=== PATIENT | female | born 1980 | race Caucasian/White ===

== ENCOUNTER 2020-04-11 14:05 | Emergency (ER) | payer BC, SELFPAY ==
--- NOTE | ~2020-04-11 | CT_ITS ---
EXAMINATION: CT brain wo con DATE: 04/11/2020 16:01 INDICATION: Headache. TECHNIQUE: Computed tomography (CT) of the head was performed without intravenous contrast. The mA wa s adjusted according to patient size. Iterative reconstruction technique was employed. The dose-lengt h product was 605.33 mGy-cm. COMPARISON: None FINDINGS: There is no intracranial hemorrhage, acute infarction, or abnormal intracranial mass lesion . The ventricles are normal in size. There is mild mucosal thickening in the paranasal sinuses. The m astoid air cells are normal. The orbits are normal. IMPRESSION: 1. Normal brain. Reviewed, dictated and finalized at location B. KING MACHINE OPERATOR IMPRESSION: 1. Normal brain.
[2020-04-11 14:19] VITALS: BP 124/80; PULSE 88; RESP 17; TEMP 36.7; O2SAT 100
[2020-04-11] MEDS: diphenhydrAMINE HCl INJ 50 MG/ML VIAL 25 MG IV PUSH (16:10)
[2020-04-11] MEDS: KETOROLAC 30 MG/ML VIAL (*BKC) IV PUSH (16:11)
[2020-04-11] MEDS: METOCLOPRAMIDE HCL INJ 10 MG/2 ML VIAL IV PUSH (16:12)
[2020-04-11] MEDS: SODIUM CHLORIDE 0.9% IV 1,000 ML 999 ML IV CONT (16:16)
--- NOTE | 2020-04-11 17:03 | ED.HA ---
HPI - Headache General Chief Complaint: Headache Stated Complaint: stabbing headaches, covid + on 04/02/20 Time Seen by Provider: 04/11/20 15:13 Source: patient Mode of arrival: ambulatory Limitations: no limitations History of Present Illness HPI Narrative: This is a 39 year old female that presents to the ER for headaches x 1 week. Reports she was recently diagnosed with coronavirus. Reports most of her symptoms have resolved, but she is still having headaches. Reports stabbing pain on the right side of her head. She has been taking Tylenol at home with some relief. She does report history of migraines. Denies fever, vision changes, vomiting, numbness, or weakness. Related Data Home Medications Medication Instructions Recorded Confirmed No Home Medications 04/11/20 04/11/20 Allergies Allergy/AdvReac Type Severity Reaction Status Date / Time No Known Allergies Allergy Mild Verified 04/11/20 14:07 Review of Systems Review of Systems: Narrative: CONSTITUTIONAL: Denies fever EYES: Denies visual changes GASTROINTESTINAL: Denies vomiting SKIN: Denies rash NEUROLOGIC: Reports headache. Denies numbness, or weakness. All systems reviewed & are unremarkable except as noted in HPI and below PMFSH Surgical History Surgical History (Updated 04/11/20 @ 17:07 by Gail Lima PA-C) History of hysterectomy Family History Family History (Updated 12/27/13 @ 07:13 by DOCTOR UNKNOWN) Mother Hypertension Carcinoma of colon Family history of coronary artery disease Social History Social History Smoking status: Former smoker Smoking end date: 05/02/02 Alcohol intake: current Gender identity (if verbalized by the patient): Female Exam Narrative: Exam Narrative: GENERAL: Well-appearing, well-nourished, and in no acute distress. HEAD: Normocephalic, atraumatic. EYES: PERRLA and EOMI. ENT: Nares clear, no rhinorrhea or epistaxis. Mucous membranes moist. Oropharynx without tonsillar hypertrophy exudate or other lesions. Bilateral TMs pearly callahan non-bulging NECK: Supple. No adenopathy or masses. CHEST: Clear to auscultation. No respiratory distress. No wheezes rales or rhonchi HEART: Regular rate and rhythm. No murmur heard. Normal peripheral pulses. EXTREMITIES: Normal range of motion. No edema. Strength equal in bilateral upper and lower extremities (5/5) SKIN: Warm, dry, no rash. NEURO: No focal deficits. Alert and oriented x3. Cranial nerves II through XII grossly intact. Normal [id number] PSYCH: Normal mood and affect Course Vital Signs Vital signs: Vital Signs Temperature 98.0 F 04/11/20 14:19 Pulse Rate 88 04/11/20 14:19 Respiratory Rate 17 04/11/20 14:19 Blood Pressure 124/80 04/11/20 14:19 Pulse Oximetry 100 04/11/20 14:19 Temperature 98.0 F 04/11/20 14:19 Pulse Rate 88 04/11/20 14:19 Respiratory Rate 17 04/11/20 14:19 Blood Pressure 124/80 04/11/20 14:19 Pulse Oximetry 100 04/11/20 14:19 MDM - Headache MDM Narrative Medical decision making narrative: Patient presents emergency department for headaches over the last week. She is neurologically intact. She is afebrile and nontoxic-appearing. Vitals are normal. CT scan of the brain is without acute findings. Patient was updated on case findings. Reports improvement with migraine cocktail. She is stable and felt appropriate for further outpatient evaluation. Given neurology for follow-up for headaches. She was given warnings to return to the ER Imaging Data Radiologist's impression: ITS Impressions Head CT 04/11/20 16:03 IMPRESSION: 1. Normal brain. Critical Care Time Critical Care Time Critical Care Time: No Discharge Plan Discharge Clinical Impression: Headache Qualifiers: Headache type: unspecified Headache chronicity pattern: episodic headache Intractability: not intractable Qualified Code(s): R51.9 - Headache, unspecified Patient Disposition: Home, Self
== END 2020-04-11 17:47 | disposition home or self-care (01) ==
PROVIDERS: Emergency Provider Emergency Medicine; PCP Family Medicine
DX: R51.9 Headache, unspecified (principal); Z87.891 Personal history of nicotine dependence
CPT/HCPCS: 70450; 96361; 96365; 96375; 99284; J0131; J1100; J1200; J1885; J2765; J7030

== ENCOUNTER 2024-02-26 14:16 | Emergency (ER) | payer BC, SELFPAY ==
[2024-02-26 14:25] VITALS: BP 124/88; PULSE 77; RESP 18; TEMP 36.6; O2SAT 99
--- NOTE | 2024-02-26 14:26 | ED_ITS ---
HPI - Skin/Abscess/Foreign Bdy General Chief complaint: Skin/Abscess/Foreign Body Stated complaint: rash Time Seen by Provider: 02/26/24 14:27 Source: patient Mode of arrival: ambulatory Limitations: no limitations History of Present Illness HPI narrative: 43 yo F presents with c/o itchy rash to backs of thighs, hands, neck and chest for the past 2 days. States that rash comes and goes. Describes rash at red bump s to thighs and neck. Palms of hands are red. Denies use of any new products. States that only thing that she has done different recently was hold wet towels and swimsuits at an indoor pool. Has taken benadryl. All systems reviewed and negative except as noted above. Related Data Allergies Allergy/AdvReac Type Severity Reaction Status Date / Time No Known Allergies Allergy Mild Verified 02/26/24 14:37 Review of Systems Review of Systems: CONSTITUTIONAL: Denies fever, chills, or sweats. EYES: Denies visual changes, redness, or discharge. ENT: Denies rhinorrhea, congestion, sore throat, or otalgia. CARDIOVASCULAR: Denies chest pain, palpitations, or edema. RESPIRATORY: Denies cough or dyspnea. GASTROINTESTINAL: Denies abdominal pain, nausea, vomiting, or diarrhea. GENITOURINARY: Denies dysuria or hematuria. SKIN: Reports rash and itching. MUSCULOSKELETAL: Denies back pain, joint pain, or myalgia. NEUROLOGIC: Denies headache, numbness, or weakness. PSYCHIATRIC: Denies anxiety or depression. All other systems reviewed are negative, except as documented in HPI. [facility] Past Medical History Medical History Family history of colon cancer LUPE (generalized anxiety disorder) Surgical History Surgical History History of hysterectomy Family History Family History Mother Hypertension Carcinoma of colon Family history of coronary artery disease Social History Social History Smoking packs per day: 0.5 Smoking cigarettes per day: 10.0 Years smoked: 10 Smoking pack-years: 5.00 Smoking status: Former smoker Tobacco type: cigarettes Second hand tobacco smoke exposure: No Smoking end date: 05/02/02 Alcohol intake: current Substance use: never Substance use type: does not use Living arrangements: with family Occupation/Education: other Additional occupation/education comments: Stay at home mom Gender identity (if verbalized by the patient): Female Comments At time of signature, agree with nursing past medical, surgical, social and family history. There is no relevant family history pertinent to the presenting complaint. Exam Narrative: GENERAL: This is a well-nourished, well-developed patient, in no apparent distress. HEAD: normocephalic, atraumatic. EYES: PERRL. Sclera clear/white. Vision is grossly intact. EARS: External ears normal NOSE: External nose normal NECK: Neck supple, non-tender without lymphadenopathy, masses or thyromegaly. CARDIOVASCULAR: Regular rate and rhythm without murmurs, gallops, or rubs. RESPIRATORY: Clear to auscultation. Breath sounds equal bilaterally. No wheezes, rales, or rhonchi. SKIN: warm, Dry, intact, good texture and turgor. mild erythematous papules to L anterior neck, some erythema to palms of hands. no other rash noted at this time. NEURO: awake, alert, and oriented to person, place and time. There were no obvious focal neurologic abnormalities. EXTREMITIES: No joint tenderness, effusion, or edema noted. Course Course Level of Care: Express Care Visit Vital Signs Vital signs: Vital Signs Temperature 36.6 C 02/26/24 14:25 Pulse Rate 77 02/26/24 14:25 Respiratory Rate 18 02/26/24 14:25 Blood Pressure 124/88 02/26/24 14:25 Pulse Oximetry 99 02/26/24 14:25 Oxygen Delivery Room Air 02/26/24 14:25 Temperature 36.6 C 02/26/24 14:25 Pulse Rate 77 02/26/24 14:25 Respiratory Rate 18 02/26/24 14:25 Blood Pressure 124/88 02/26/24 14:25 Pulse Oximetry 99 02/26/24 14:25 Oxygen Delivery Room Air 02/26/24 14:25 reviewed MDM - Skin/Abscess/Foreign Bdy MDM Narrative Medical decision making narrative: will treat with steroids, pepcid, antihistamine for possible allergic reaction or contact dermatitis Patient is aware of diagnosis, understands and agrees to treatment plan. A nticipatory guidance given. Patient agrees to follow-up as directed and is aware of reasons to seek care at the emergency department. Portions of this record may have been created with voice recognition software Differential Diagnosis Differential diagnosis: Likely urticaria, allergic reaction to drug, eczema and contact dermatitis Discharge Plan Discharge Clinical Impression: Rash and nonspecific skin eruption Patient Disposition: Home, Self-Care Condition: Stable Instructions: Acute Rash (ED), Dermatitis (ED) Additional Instructions: Take prednisone as prescribed. Take an qybr-iyq-dtadgmt antihistamine such as Claritin or Zyrtec. Take Ivei-ddz-lbqdjam Pepcid twice a day for the next 5-7 days. follow-up with your doctor if rash is not improving. Prescriptions: New prednisone 20 mg tablet See Rx Instructions .ROUTE .COMPLEX Qty: 12 0RF Rx Instructions: Take 3 tablets today, then 2 tablets daily for 3 days then 1 tablet daily for 3 days. Follow-up/Referrals: Apolinar Holt MD [Primary Care Provider] - Time of Disposition: 14:50
== END 2024-02-26 14:54 | disposition home or self-care (01) ==
PROVIDERS: Emergency Provider Nurse Practitioner Family; PCP Family Medicine
DX: R21 Rash and other nonspecific skin eruption (principal); Z87.891 Personal history of nicotine dependence
CPT/HCPCS: 99213; G0463

== ENCOUNTER 2024-03-03 17:15 | Emergency (ER) | payer BC, SELFPAY ==
[2024-03-03 17:23] VITALS: BP 106/62; PULSE 76; RESP 16; TEMP 36.2; O2SAT 98
--- NOTE | 2024-03-03 17:51 | ED_ITS ---
HPI - Ear Problem General Chief complaint: Ear Stated complaint: ear clogged up Time Seen by Provider: 03/03/24 17:26 Source: patient and RN notes reviewed Mode of arrival: ambulatory Limitations: no limitations History of Present Illness HPI Narrative: Patient presents today complaining of left ear clogging x9 days. Denies pain or drainage. She has been taking Zyrtec without relief. Last week she was on some prednisone to help with a rash. Related Data Home Medications Medication Instructions Recorded Confirmed No Home Medications 03/03/24 03/03/24 Allergies Allergy/AdvReac Type Severity Reaction Status Date / Time No Known Allergies Allergy Mild Verified 03/03/24 17:18 Review of Systems Review of Systems: CONSTITUTIONAL: Denies body aches, fever, chills, or sweats. EYES: Denies visual changes, redness, or discharge. ENT: Denies rhinorrhea, congestion, sore throat, or otalgia.+ left ear clogging CARDIOVASCULAR: Denies chest pain, palpitations, or edema. RESPIRATORY: Denies cough or dyspnea. GASTROINTESTINAL: Denies abdominal pain, nausea, vomiting, or diarrhea. GENITOURINARY: Denies dysuria or hematuria. SKIN: Denies rash, itching, or wounds. MUSCULOSKELETAL: Denies back pain, joint pain, or myalgia. NEUROLOGIC: Denies headache, numbness, tingling, or weakness. PSYCH: Denies depression or anxiety. [facility] Past Medical History Medical History Family history of colon cancer LUPE (generalized anxiety disorder) Surgical History Surgical History History of hysterectomy Family History Family History Mother Hypertension Carcinoma of colon Family history of coronary artery disease Social History Social History Smoking packs per day: 0.5 Smoking cigarettes per day: 10.0 Years smoked: 10 Smoking pack-years: 5.00 Smoking status: Former smoker Tobacco type: cigarettes Second hand tobacco smoke exposure: No Smoking end date: 05/02/02 Alcohol intake: current Substance use: never Substance use type: does not use Living arrangements: with family Occupation/Education: other Additional occupation/education comments: Stay at home mom Gender identity (if verbalized by the patient): Female Comments At time of signature, I have reviewed and agree with nursing past medical, surgical, social and family history unless otherwise noted. Please see nursing chart for further information. There is no relevant family history pertinent to the presenting complaint Exam Narrative: GENERAL: Well-appearing, well-nourished, and in no acute distress. HEAD: Normocephalic, atraumatic. EYES: EOMI. No redness or drainage. Conjunctivae normal. ENT: Mucous membranes pink and moist. Nares clear. No rhinorrhea. Right TM normal. Left TM pearly callahan with moderate middle ear effusion without evidence of bacterial infection. NECK: Normal AROM. CHEST: No respiratory distress. EXTREMITIES: Normal range of motion. No edema. SKIN: Warm, dry, no rash. Capillary refill normal. Normal skin turgor. NEURO: No focal deficits. Alert and oriented x3. Gait steady. PSYCH: Normal affect. No signs of depression or anxiety. Course Course Level of Care: Express Care Visit Vital Signs Vital signs: Vital Signs Temperature 97.2 F L 03/03/24 17:23 Pulse Rate 76 03/03/24 17:23 Respiratory Rate 16 03/03/24 17:23 Blood Pressure 106/62 03/03/24 17:23 Pulse Oximetry 98 03/03/24 17:23 Oxygen Delivery Room Air 03/03/24 17:23 Temperature 97.2 F L 03/03/24 17:23 Pulse Rate 76 03/03/24 17:23 Respiratory Rate 16 03/03/24 17:23 Blood Pressure 106/62 03/03/24 17:23 Pulse Oximetry 98 03/03/24 17:23 Oxygen Delivery Room Air 03/03/24 17:23 Reviewed Medical Decision Making MDM Narrative Medical decision making narrative: Instructed patient to start pseudoephedrine and Afrin or Flonase to help with symptoms. Discussed dosing limitations of Afrin to prevent rhinitis medicamentosa. Anticipatory guidance given. Differential Diagnosis Differential Diagnosis: Otitis media, otitis externa, ruptured TM, serous otitis, cerumen impaction Vital Signs Vital Signs: Vital Signs Temperature 97.2 F L 03/03/24 17:23 Pulse Rate 76 03/03/24 17:23 Respiratory Rate 16 03/03/24 17:23 Blood Pressure 106/62 03/03/24 17:23 Pulse Oximetry 98 03/03/24 17:23 Oxygen Delivery Room Air 03/03/24 17:23 Temperature 97.2 F L 03/03/24 17:23 Pulse Rate 76 03/03/24 17:23 Respiratory Rate 16 03/03/24 17:23 Blood Pressure 106/62 03/03/24 17:23 Pulse Oximetry 98 03/03/24 17:23 Oxygen Delivery Room Air 03/03/24 17:23 Critical Care Time Critical Care Time Critical Care Time: No Discharge Plan Discharge Clinical Impression: Acute serous otitis media of left ear Patient Disposition: Home, Self-Care Condition: Stable Instructions: Fluid In The Ear (Serous Otitis Media) (ED) Additional Instructions: You have a collection of fluid behind your eardrum, but there is not an indication of infection. Start Sudafed and Afrin or Flonase. Attempt to equalize your ear gently. Follow up with your PCP in 1 week if symptoms are not improving. Prescriptions: No Action No Home Medications Follow-up/Referrals: Apolinar Holt MD [Primary Care Provider] - Time of Disposition: 17:39
== END 2024-03-03 17:40 | disposition home or self-care (01) ==
PROVIDERS: Emergency Provider Nurse Practitioner; PCP Family Medicine
DX: H65.02 Acute serous otitis media, left ear (principal); Z87.891 Personal history of nicotine dependence
CPT/HCPCS: 99211; G0463

== ENCOUNTER 2024-11-23 14:43 | Outpatient (CLI) | payer BC, SELFPAY ==
--- NOTE | ~2024-11-23 | XR_ITS ---
EXAM/ PROCEDURE: XR foot RT min 3V - 11/23/2024 14:55 CDT HISTORY: 44 years old Female with M79.671 - Pain in right foot COMPARISON: None available TECHNIQUE: Three view(s) FINDINGS/ IMPRESSION: There are no fractures or dislocations.Joint spaces are within normal limits. Reviewed, dictated and finalized at location A.
--- NOTE | ~2024-11-23 | XR_ITS ---
EXAM/ PROCEDURE: XR foot LT min 3V - 11/23/2024 14:55 CDT HISTORY: 44 years old Female with M79.671 - Pain in right foot COMPARISON: None available TECHNIQUE: Three view(s) FINDINGS/ IMPRESSION: There are no fractures or dislocations.Joint spaces are within normal limits. Reviewed, dictated and finalized at location A.
--- NOTE | ~2024-11-23 | XR_ITS ---
XR lumbar spine 2-3V 11/23/2024 15:13 Indication: Foot pain Procedure: 3 views of the lumbar spine Comparison: No prior studies for comparison. Findings: Vertebral body heights are maintained. No significant disc narrowing. No evidence for spond ylolisthesis. No fracture or traumatic malalignment. Impression: 1: No significant abnormality of the lumbar spine. Reviewed, dictated and finalized at location [] Impression: 1: No significant abnormality of the lumbar spine.
--- NOTE | ~2024-11-23 | XR_ITS ---
EXAMINATION: SACRUM/COCCYX DATE: 11/23/2024 15:13 INDICATION: Bilateral foot pain and numbness TECHNIQUE: Three views sacrum/coccyx FINDINGS: No prior studies for comparison. There is no displaced fracture of the sacrum. The coccyx demonstrates overall normal morphology with out acute angulation. IMPRESSION: 1. No acute displaced osseous abnormality of the sacrum. Suspicion for occult or nondisplaced sacral fracture can either be evaluated with CT or MRI. 2. Grossly normal morphology to the coccyx without acute angulation. However, due to the wide range of normal variation of the coccyx, acute injury would be best evaluated by clinical examination and patient's symptoms. Reviewed, dictated and finalized at location []
--- OUTSIDE RECORDS SUMMARY | 2024-11-23 14:48 | XMS_ITS | Referral Summary ---
Author [place] [facility] [address] Address [address] [place] [address] Care Team Providers Care Paper Cutting Machine Operator Name Role Phone Apolinar Holt MD Primary Care Provider Allergies No known active allergies Medications No known medications Active Problems No known active problems Immunizations Immunization Administration Dates Next Due Influenza, Quadrivalent, Spl it, Preservative Free, Intramuscular 03/18/2020,03/05/2019,03/08/2017 Influenza, Trivalent, IM (MDV) 02/08/2013 Tdap 05/12/2020,01/23/2013 Social History Tobacco Use Types Packs/Day Years Used Date Smoking Tobacco: Former Cigarettes Smokeless Tobacco: Never Comments No Sex and Gender Information Value Date Recorded Sex Assigned at Not on file Legal Sex Female 7:47 PM AUTO BRAKE MECHANIC Gender Identity Not on file Sexual Orientation Not on file Last Filed Vital Signs Vital Sign Reading Time Taken Comments Blood Pressure 132/90 05/16/2024 11:26 AM AUTO BRAKE MECHANIC Pulse - - Temperature - - Respiratory Rate - - Oxygen Saturation - - Inhaled Oxygen Concentration - - Weight 82.6 kg (182 lb) 05/16/2024 11:26 AM AUTO BRAKE MECHANIC Height 165.1 cm (5' 5) 05/16/2024 11:26 AM AUTO BRAKE MECHANIC Body Mass Index 30.29 05/16/2024 11:26 AM AUTO BRAKE MECHANIC Plan of Treatment Not on file Procedures Procedure Name Priority Date/Time Associated Diagnosis Comments DIAGNOSTIC MAMMOGRAM BILATERAL W DAYDAY Schedule Routine, Read Routine (OP Routine) 05/25/2024 11:41 AM AUTO BRAKE MECHANIC Abnormal mammogram from Last 3 Months or Most Recently Relevant to Health Maintenance Results * (ABNORMAL) Diagnostic Mammogram Bilateral W Dayday (05/25/2024 11:41 AM AUTO BRAKE MECHANIC) Anatomical Region Laterality Modality Breast Bilateral Mammography 05/25/2024 1:04 PM AUTO BRAKE MECHANIC Impressions 05/25/2024 1:04 PM AUTO BRAKE MECHANIC 1. No mammographic or sonographic finding of malignancy in the right breast. 2. Partially effacing inferior asymmetry seen in the left breast on the MLO view. No suspicious sonographic correlate. Contrast-enhanced breast MRI is recommended the short that there is no suspicious finding. OVERALL FINAL ASSESSMENT: BI-RADS 0-INCOMPLETE: NEED ADDITIONAL IMAGING EVALUATION RECOMMENDATION: Contrast-enhanced breast MRI. Findings and recommendations were discussed with the patient. *The patient's information was entered into a reminder system with a target due date for the next mammogram. Electronically signed by: MARK MORENO M.D. Narrative 05/25/2024 1:04 PM AUTO BRAKE MECHANIC EXAM: DIAGNOSTIC MAMMOGRAM BILATERAL W DAYDAY, US BREAST BILATERAL LIMITED CLINICAL INDICATION: The patient was recalled from screening mammography to evaluate findings in both breasts. TECHNIQUE: Bilateral full-field digital diagnostic mammography with computer aided detection. 3D tomosynthesis images were performed. Limited/targeted sonography of the right breast performed. COMPARISON: Comparison is made to prior available while densities at the time of interpretation. FINDINGS: There are scattered areas of fibroglandular density. The focal asymmetry at 8:00 in the left breast partially effaces on spot compression technique on the MLO view. Persistent round mass in the lateral left breast suggestive of a benign intramammary lymph node. Persistent mass in the upper, slightly inner right breast. Right breast ultrasound: There is a benign-appearing 1.4 x 1.4 x 1.1 cm cyst at 1:00 4 cm from the nipple corresponding to the mass seen on mammography. Left breast ultrasound: There is a benign-appearing intramammary lymph node at 2:00 11 cm from the nipple corresponding to the finding on mammography. Additional benign-appearing intramammary lymph node seen at 1:00 7 cm from the nipple. Benign-appearing cyst seen at 10:00 5 cm from the nipple measuring 0.9 x 0.6 x 0.7 cm. Benign fibrocystic changes seen at 8:00 2 cm from the nipple. No suspicious solid or cystic mass identified in the lower inner quadrant of the left breast. Tracy Davis NP IMG MAMMO PROCEDURES Final Result from Last 3 Months or Most Recently Relevant to Health Maintenance [place] Care Teams Paper Cutting Machine Operator Relationship Specialty Start Date End Date Apolinar Holt MD [address] [id number] PCP - General Family Medicine 03/14/24
--- OUTSIDE RECORDS SUMMARY | 2024-11-23 14:48 | XMS_ITS | Clinical Summary ---
Author Organization [facility] Address [address] [place] [address] Phone Care Team Providers Care Statistical Consultant Name Role Phone Apolinar Holt MD Primary Care Provider [phone] Allergies No known active allergies Medications VIT/IRON FUMARATE/FA ( ORAL) Take by mouth. Active FOLIC ACID ORAL Take by mouth. Active sertraline (ZOLOFT) 50 mg tablet Take 50 mg by mouth daily. Active LORazepam (ATIVAN) 0.5 mg tablet Take 0.5 mg by mouth 2 times daily as needed for Anxiety. Active oxyCODONE-aceta minophen (PERCOCET) 5-325 mg tablet Take 1 Tablet by mouth every 4 hours as needed for Pain, Moderate. Max Daily Amount: 6 Tablets 12 Tablet 03/08/2017 Active ibuprofen (MOTRIN) 600 mg tablet Take 1 Tablet (600 mg) by mouth every 6 hours as needed for Pain, Mild. 30 Tablet 03/08/2017 Active docusate sodium (COLACE) 100 mg capsule Take 1 capsule (100 mg) by mouth 2 times daily. 40 Capsule 03/08/2017 2:04 PM DENTAL CERAMIST HELPER 03/08/2017 Active docusate sodium (COLACE) 100 mg capsule Take 1 Capsule (100 mg) by mouth 2 times daily. 30 Capsule 03/08/2017 Active oxyCODONE-aceta minophen (PERCOCET) 5-325 mg tablet Take 1 tablet by mouth every 4 hours as needed for moderate pain (for pain scale of 4-6). 15 Tablet 03/08/2017 2:04 PM DENTAL CERAMIST HELPER 03/08/2017 Active ibuprofen (MOTRIN) 600 mg tablet Take 1 tablet by mouth every 6 hours as needed for pain. 30 Tablet 03/08/2017 2:04 PM DENTAL CERAMIST HELPER 03/08/2017 Active Active Problems Problem Noted Date Diagnosed Date RLTCS 09/2409/24/2014 PLTCS 01/2001/20/2013 Resolved Problems Problem Noted Date Diagnosed Date Resolved Date PLTCS 01/2001/20/2013 01/20/2013 Immunizations Immunization Administration Dates Next Due (ADACEL/BOOSTRIX)(10 YR UP) TDAP VACCINE, 0.5ML, IM 01/23/2013 INFLUENZA VACCINE QUADRIVALENT 6 MOS UP PF IM Family History Medical History Relation Name Comments Healthy Brother Healthy Father Colon Cancer Mother Healthy Sister Relation Name Status Comments Brother Alive Father Alive Mother Alive Sister Alive Social History Tobacco Use Types Packs/Day Years Used Date Smoking Tobacco: Former Cigarettes Q uit: 01/21/2004 Alcohol Use Standard Drinks/Week Comments No 0 (1 standard drink = 0.6 oz pur e alcohol) Comments No Sex and Gender Information Value Date Recorded Sex Assigned at Not on file Legal Sex Female 12:02 PM DENTAL CERAMIST HELPER Gender Identity Not on file Sexual Orientation Not on file Occupation Industry Job Start Date Job End Date Not on file Not on file Not on file Not on file Last Filed Vital Signs Vital Sign Reading Time Taken Comments Blood Pressure 95/55 03/08/2017 8:34 AM DENTAL CERAMIST HELPER Pulse 70 03/07/2017 5:40 AM DENTAL CERAMIST HELPER Temperature 36.8 C (98.2 F) 03/08/2017 8:34 AM DENTAL CERAMIST HELPER Respiratory Rate 16 03/08/2017 8:34 AM DENTAL CERAMIST HELPER Oxygen Saturation 100% 03/08/2017 8:34 AM DENTAL CERAMIST HELPER Inhaled Oxygen Concentration - - Weight 65.5 kg (144 lb 6.4 oz) 03/07/2017 5:40 A M DENTAL CERAMIST HELPER Height 165.1 cm (5' 5) 03/07/2017 5:40 AM DENTAL CERAMIST HELPER Body Mass Index 24.03 03/07/2017 5:40 AM DENTAL CERAMIST HELPER Plan of Treatment Health Maintenance Due Date Last Done Comments HEPATITIS B VACCINES (1 of 3 - 19+ 3-dose series) 1997 BREAST CANCER SCREENING 2018 DTAP/TDAP/TD VACCINES (2 - T d or Tdap) 01/23/2023 01/23/2013 COLORECTAL SCREENING 11/06/2023 Colorectal Cancer Screening 11/06/2023 FIT-DNA Q 3 years 11/06/2023 FIT/FOBT Q 1 year 11/06/2023 Flex Sig/CT Colonography Q 5 years 11/06/2023 INFLUENZA VACCINE (#1) 2024 03/08/2017 HPV VACCINES Aged Out No longer eligi ble based on patient's age to complete this topic Medical Devices Implanted Type Area Counter Sales Person Device Identifier Shelf Expiration Date Model / Serial / Lot Barrier Seprafilm 5x6in 4301-02 - [id number] Implanted:Qt y: 1 on 01/20/2013 by Nnuu Mckeon MD at [facility] Adhesion Barrier Abdomen GENZYME- BIOSURG 08/03/2014 4301-02 / [id number] / [id number] Barrier Seprafilm 5x6in 430- - [id number] Implanted:Qt y: 1 on 09/24/2014 by Nunu Mckeon MD at [facility] Adhes[employer] Barrier N/A: Uterus SANOFI [employer]ARM 08/29/2016 [id number] / / [id number] Mirena Iud Description:PLACED 12/[address] [place] [address] [facility] [employer] [place] [address] Advance Directives For more information, please contact: [phone] * Full Code (Latest Code Status on File) Date Activated Date Inactivated Comments 09/24/2014 12:35 PM 09/27/2014 2:12 PM * Full Code Date Activated Date Inactivated Comments 09/24/2014 6:50 AM 09/24/2014 12:35 PM * Full Code Date Activated Date Inactivated Comments 01/20/2013 11:28 PM 01/24/2013 2:24 PM * Full Code Date Activated Date Inactivated Comments 01/20/2013 10:27 AM 01/20/2013 11:27 PM * Full Code Date Activated Date Inactivated Comments 01/20/2013 9:04 AM 01/20/2013 10:27 AM Care Teams Statistical Consultant Relationship Specialty Start Date End Date Apolinar Holt MD [address] [facility] [address] [place] [address] PCP - General Family Practice 02/22/17
--- OUTSIDE RECORDS SUMMARY | 2024-11-23 14:48 | XMS_ITS | Patient Health Record ---
Author Organization [facility] Address [address] [address] Care Team Providers Care Auto Body Mechanic Name Role Phone Migration, Provider Unavailable Unavailable Reason For Referral No Information Encounters Encounter Location Date Provider Diagnosis [facility] [address] [place], [place] [id number] 07/28/2024 Prov ider Migration [facility] [address] [place], [place] [id number] 07/29/2024 Prov ider Migration Plan Of Treatment No Information
--- OUTSIDE RECORDS SUMMARY | 2024-11-23 14:48 | XMS_ITS ---
Author Organization [facility] Address [address] [address] Care Team Providers Care Line Patrolman Name Role Phone Migration, Provider Unavailable Unavailable REASON FOR VISIT EMR-Ata Encounters Encounter Location Date Provider Diagnosis [facility] [address] [place], [place] [id number] 07/29/2024 Prov ider Migration Plan Of Treatment No Information Progress Notes * AZAEL TORRENDOB:1980 ([age] yo Other)Acc No.[id number]:07/29/2024 Patient: Moon DELIO BONILLA :1980 A ge:43 Y S ex:Unknown Phone: Address:[facility] [address] [place], [address] Subjective: * Chief Complaints: * E MR-Ata * * Date:
--- OUTSIDE RECORDS SUMMARY | 2024-11-23 14:48 | XMS_ITS | Clinical Summary ---
Author Organization [facility] [address] [employer] Address [address] [email or web address] [address] Care Team Providers Care Manager Cost Name Role Phone Apolinar Holt MD Primary Care Provider Allergies No known active allergies Medications No known medications Active Problems No known active problems Immunizations Immunization Administration Dates Next Due Influenza, Quadrivalent, Spl it, Preservative Free, Intramuscular 03/18/2020,03/05/2019,03/08/2017 Influenza, Trivalent, IM (MDV) 02/08/2013 Tdap 05/12/2020,01/23/2013 Surgical History Surgery Date Site/Laterality Comments ROBOTIC ASSISTED HYSTERECTOMY 03/02/2017 - 03/31/2017 Right Salpingoophorectomy and left salpingectomy; [facility]; Pelvic pain/endo SECTION x2 01/20/13, 09/24/14 LAPAROSCOPY D&C FIRST TRIMESTER / TX INCOMPLETE / MISSED / SEPTIC / INDUCED x2 Family History Medical History Relation Name Comments Ovarian cancer Maternal Grandmother Colon cancer Mother Relation Name Status Comments Maternal Grandmother Mother Social History Tobacco Use Types Packs/Day Years Used Date Smoking Tobacco: Former Cigarettes Smokeless Tobacco: Never Comments No Sex and Gender Information Value Date Recorded Sex Assigned at Not on file Legal Sex Female 7:47 PM CHIEF STEWARD/STEWARDESS Gender Identity Not on file Sexual Orientation Not on file Obstetrics History Para Term AB IAB SAB Ectopic Multiple Livin g Live Births 5 2 2 3 3 2 2 Date Outcome GA Total Labor Labor/2nd/3rd Weight Sex Type Anes PTL Gila A1 A5 Name Clin SAB SAB SAB 013 Term 39w 0d 3.544 kg (7 lb 13 oz) F CS-LT ranv Epidur al Livin g 8 9 THURSTON, GIRL1 Ruma Salas MD Delivery Location:[facility] Comments:No observed a nomalies 015 Term 39w 1d 3.997 kg (8 lb 13 oz) M CS-LT ranv Combin ed Spinal /Epidu ral N Livin g 9 9 Complications:None Delivery Location:[facility] Comments:No observed a nomalies Last Filed Vital Signs Vital Sign Reading Time Taken Comments Blood Pressure 132/90 05/16/2024 11:26 AM CHIEF STEWARD/STEWARDESS Pulse - - Temperature - - Respiratory Rate - - Oxygen Saturation - - Inhaled Oxygen Concentration - - Weight 82.6 kg (182 lb) 05/16/2024 11:26 AM CHIEF STEWARD/STEWARDESS Height 165.1 cm (5' 5) 05/16/2024 11:26 AM CHIEF STEWARD/STEWARDESS Body Mass Index 30.29 05/16/2024 11:26 AM CHIEF STEWARD/STEWARDESS Plan of Treatment Health Maintenance Due Date Last Done Comments Colon Cancer Screening-Colonoscopy 1980 Depression Screening 1978 Hepatitis C Screening 1978 Hepatitis B Screening 1996 Influenza Vaccine (#1) 2024 , 03/05/2019, 03/08/2017, Additional history exists Regular Well Visit/Exam 18-64 05/16/2025 05/16/2024 Breast Cancer Screening-Mammogram 05/25/2025 05/25/2024, 05/16/2024 DTaP/Tdap/Td Vaccine (3 - Td or Tdap) 05/12/2030 05/12/2020, 01/23/2013 HPV Vaccines Aged Out No longer eligi ble based on patient's age to complete this topic Pneumococcal vaccine <65 Aged Out No longer eligible based on patient's age to complete this topic Procedures Procedure Name Priority Date/Time Associated Diagnosis Comments DIAGNOSTIC MAMMOGRAM BILATERAL W DAYDAY Schedule Routine, Read Routine (OP Routine) 05/25/2024 11:41 AM CHIEF STEWARD/STEWARDESS Abnormal mammogram from Last 3 Months or Most Recently Relevant to Health Maintenance Results * (ABNORMAL) Diagnostic Mammogram Bilateral W Dayday (05/25/2024 11:41 AM CHIEF STEWARD/STEWARDESS) Anatomical Region Laterality Modality Breast Bilateral Mammography 05/25/2024 1:04 PM CHIEF STEWARD/STEWARDESS Impressions 05/25/2024 1:04 PM CHIEF STEWARD/STEWARDESS 1. No mammographic or sonographic finding of [...] MARK MORENO M.D. Narrative 05/25/2024 1:04 PM CHIEF STEWARD/STEWARDESS EXAM: DIAGNOSTIC MAMMOGRAM BILATERAL W DAYDAY, US [...] lower inner quadrant of the left breast. us Tracy Earl Davis SEROLOGY TEACHER IMG MAMMO PROCEDURES Final Result from Last 3 Months or Most Recently Relevant to Health Maintenance Insurance [employer] ACCESS CHOICE CT [employer] [place] CHOICE CT Care Teams Manager Cost Relationship Specialty Start Date End Date Apolinar Holt MD [address] [facility] [address] [place] [address] PCP - General Family Medicine 03/14/24
--- OUTSIDE RECORDS SUMMARY | 2024-11-23 14:48 | XMS_ITS | Clinical Summary ---
Author Organization [facility] [employer] Address [address] [place] [address] Care Team Providers Care Early Years Teacher Name Role Phone Unavailable Primary Care Provider Unavailabl e Source Comments [facility] [employer],non-owned Affiliates and Associated Physician Practices is amultiple site organization consisting of ambulatory clinics and hospital sitesin [place], [place], [place] and [place]. This disclosure is being madepursuant to the Care Everywhere program and may not contain all information available regarding this patient. Last updated 18.[facility] [employer] Social History Tobacco Use Types Packs/Day Years Used Date Smoking Tobacco: Never Assessed Comments Unknown Sex and Gender Information Value Date Recorded Sex Assigned at Not on file Legal Sex Female 10:02 AM SWITCHBOARD RECEPTIONIST Gender Identity Not on file Sexual Orientation Not on file Plan of Treatment Health Maintenance Due Date Last Done Comments COLOGUARD (AGES 45-75) - COL ON CA SCREENING 1978 COLON MONITORING 1978 COLONOSCOPY - COLON CA SCREENING 1978 CT COLONOGRAPHY - COLON CA SCREENING 1978 Colorectal Cancer Screening 1978 FIT - COLON CA SCREENING 1978 FLEX SIG - COLON CA SCREENING 1978 LIPID TESTING 1978 MAMMOGRAM 1978 HIV SCREENING 1993 HEPATITIS C SCREENING 10/31/1996 DTAP/TDAP/TD VACCINES (1 - Tdap) 1997 HEPATITIS B VACCINE (1 of 3 - 19+ 3-dose series) 1997 COVID-19 VACCINE ( - 2023-2 5 season) 2024 DEPRESSION SCREENING 05/02/2024 INFLUENZA VACCINE (#1) 2024 ZOSTER VACCINE (1 of 2) 2028 HIB VACCINE Aged Out No longer eligi ble based on patient's age to complete this topic HPV VACCINE Aged Out No longer eligi ble based on patient's age to complete this topic MENINGOCOCCAL (Group B) VACC INE SHARED DECISION-MAKING Aged Out No longer eligibl e based on patient's age to complete this topic MENINGOCOCCAL GROUPS A/C/Y/W VACCINE Aged Out No longer eligible b ased on patient's age to complete this topic PNEUMOCOCCAL VACCINE Aged Out No long er eligible based on patient's age to complete this topic
--- OUTSIDE RECORDS SUMMARY | 2024-11-23 14:48 | XMS_ITS ---
Author Organization [facility] Address [address] [address] Care Team Providers Care Gin Feeder Name Role Phone Migration, Provider Unavailable Unavailable REASON FOR VISIT EMR-Ata Encounters Encounter Location Date Provider Diagnosis [facility] [place] [address] [place], [place] [id number] 07/28/2024 Prov ider Migration Plan Of Treatment No Information Progress Notes * AZAEL TORRENDOB:1980 ([age] yo Other)Acc No.[id number]:07/28/2024 Patient: Moon DELIO BONILLA :1980 A ge:43 Y S ex:Unknown Phone: Address:[facility] [address] [place], [address] Subjective: * Chief Complaints: * E MR-Ata * * Date:
== END 2024-11-23 14:44 | disposition home or self-care (01) ==
PROVIDERS: PCP Family Medicine
DX: M54.16 Radiculopathy, lumbar region (principal); M79.671 Pain in right foot; M79.672 Pain in left foot
CPT/HCPCS: 72100; 72220; 73630

== ENCOUNTER 2025-02-26 00:29 | Day surgery (SDC) | payer BC, SELFPAY ==
--- OUTSIDE RECORDS SUMMARY | 2024-07-28 04:00 | XMS_ITS ---
Author Organization [facility] Address [address] [place] [address] Care Team Providers Care Valve Steamer Name Role Phone Migration, Provider Unavailable Unavailable REASON FOR VISIT EMR-Ata Encounters Encounter Location Date [facility] [address] [place], [place] [id number] 07/28/2024 Prov ider Migration Plan Of Treatment No Information Progress Notes * AZAEL TORRENDOB:1980 ([age] yo Other)Acc No.[id number]:07/28/2024 Patient: Moon DELIO BONILLA :1980 A ge:43 Y S ex:Unknown Phone: Address:[facility] [address] [place], [address] Subjective: * Chief Complaints: * E MR-Ata * * Date:
--- OUTSIDE RECORDS SUMMARY | 2024-07-29 04:00 | XMS_ITS ---
Author Organization [facility] Address [address] [place] [address] Care Team Providers Care Voip Engineer Name Role Phone Migration, Provider Unavailable Unavailable REASON FOR VISIT EMR-Ata Encounters Encounter Location Date [facility] [address] [place], [place] [id number] 07/29/2024 Prov ider Migration Plan Of Treatment No Information Progress Notes * AZAEL TORRENDOB:1980 ([age] yo Other)Acc No.[id number]:07/29/2024 Patient: Moon CHAD DELIO :1980 A ge:43 Y S ex:Unknown Phone: Address:[facility] [address] [place], [address] Subjective: * Chief Complaints: * E MR-Ata * * Date:
[2025-02-19 14:43] VITALS: BMI 28.4
--- OUTSIDE RECORDS SUMMARY | 2025-02-26 00:31 | XMS_ITS | Clinical Summary ---
Author Organization [facility] Address [address] [place] [address] Care Team Providers Care Utilization Review Specialist Name Role Phone Unavailable Primary Care Provider Unavailabl e Source Comments [facility],non-owned Affiliates and Associated Physician Practices is amultiple site organization consisting of ambulatory clinics and hospital sitesin [place], [place], [place] and [place]. This disclosure is being madepursuant to the Care Everywhere program and may not contain all information available regarding this patient. Last updated 18.[facility] Social History Tobacco Use Types Packs/Day Years Used Date Smoking Tobacco: Never Assessed Comments Unknown Sex and Gender Information Value Date Recorded Sex Assigned at Not on file Legal Sex Female 10:02 AM VP CUSTOMER DEVELOPMENT Gender Identity Not on file Sexual Orientation [...] of 3 - 19+ 3-dose series) 1997 DEPRESSION SCREENING 05/02/2024 COVID-19 VACCINE ( - 2023-2 5 season) 2024 INFLUENZA VACCINE (#1) 2024 ZOSTER VACCINE (1 [...]
--- OUTSIDE RECORDS SUMMARY | 2025-02-26 00:31 | XMS_ITS | Patient Health Record ---
Author Organization [facility] Address [address] [place] [address] Care Team Providers Care Food And Nutrition Services Assistant Name Role Phone Migration, Provider Unavailable Unavailable Reason For Referral No Information Encounters Encounter Location Date Provider Diagnosis [facility] [address] [place], [place] [id number] 07/28/2024 Prov ider Migration [facility] [address] [place], [place] [id number] 07/29/2024 Prov ider Migration Plan Of Treatment No Information
--- OUTSIDE RECORDS SUMMARY | 2025-02-26 00:32 | XMS_ITS | Clinical Summary ---
Author Organization [facility] [address] [employer] Address [address] [place] [address] Care Team Providers Care Client Technical Professional Name Role Phone Apolinar Holt MD Primary [...] on file Legal Sex Female 7:47 PM REWEAVER Gender Identity Not on file Sexual Orientation [...] 9 THURSTON, GIRL1 Ruma Salas MD Delivery Location:[facility] Comments:No observed a nomalies 015 Term 39w 1d 3.997 kg (8 lb 13 oz) M CS-LT ranv Combin ed Spinal /Epidu ral N Livin g 9 9 Complications:None Delivery Location:[facility] Comments:No observed a nomalies Last Filed Vital Signs Vital Sign Reading Time Taken Comments Blood Pressure 132/90 05/16/2024 11:26 AM REWEAVER Pulse - - Temperature - - Respiratory Rate - - Oxygen Saturation - - Inhaled Oxygen Concentration - - Weight 82.6 kg (182 lb) 05/16/2024 11:26 AM REWEAVER Height 165.1 cm (5' 5) 05/16/2024 11:26 AM REWEAVER Body Mass Index 30.29 05/16/2024 11:26 AM REWEAVER Plan of Treatment Health Maintenance Due Date [...] Read Routine (OP Routine) 05/25/2024 11:41 AM REWEAVER Abnormal mammogram from Last 3 Months or Most Recently Relevant to Health Maintenance Results * (ABNORMAL) Diagnostic Mammogram Bilateral W Dayday (05/25/2024 11:41 AM REWEAVER) Anatomical Region Laterality Modality Breast Bilateral Mammography 05/25/2024 1:04 PM REWEAVER Impressions 05/25/2024 1:04 PM REWEAVER 1. No mammographic or sonographic finding of [...] MARK MORENO M.D. Narrative 05/25/2024 1:04 PM REWEAVER EXAM: DIAGNOSTIC MAMMOGRAM BILATERAL W DAYDAY, US [...] the left breast. us Tracy Earl Davis WINDOWS SOFTWARE ENGINEER IMG MAMMO PROCEDURES Final Result from Last 3 Months or Most Recently Relevant to Health Maintenance Insurance [employer] ACCESS CHOICE ID RECCY CHOICE ID Care Teams Client Technical Professional Relationship Specialty Start Date End Date Apolinar Holt MD [address] [facility] [address] [place] [address] PCP - General Family Medicine 03/14/24
--- OUTSIDE RECORDS SUMMARY | 2025-02-26 00:32 | XMS_ITS | Clinical Summary ---
Author Organization [facility] Address [address] [place] [address] Phone Care Team Providers Care Welt Butter Hand Name Role Phone Apolinar Holt MD Primary Care Provider [phone] Allergies No known active allergies Medications VIT/IRON [...] times daily. 40 Capsule 03/08/2017 2:04 PM FLOOR SANDING MACHINE OPERATOR 03/08/2017 Active docusate sodium (COLACE) 100 mg capsule Take 1 Capsule (100 mg) by mouth 2 times daily. 30 Capsule 03/08/2017 Active oxyCODONE-aceta minophen (PERCOCET) 5-325 mg tablet Take 1 tablet by mouth every 4 hours as needed for moderate pain (for pain scale of 4-6). 15 Tablet 03/08/2017 2:04 PM FLOOR SANDING MACHINE OPERATOR 03/08/2017 Active ibuprofen (MOTRIN) 600 mg tablet Take 1 tablet by mouth every 6 hours as needed for pain. 30 Tablet 03/08/2017 2:04 PM FLOOR SANDING MACHINE OPERATOR 03/08/2017 Active Active Problems Problem Noted Date [...] on file Legal Sex Female 12:02 PM FLOOR SANDING MACHINE OPERATOR Gender Identity Not on file Sexual Orientation Not on file Occupation Industry Job Start Date Job End Date Not on file Not on file Not on file Not on file Last Filed Vital Signs Vital Sign Reading Time Taken Comments Blood Pressure 95/55 03/08/2017 8:34 AM FLOOR SANDING MACHINE OPERATOR Pulse 70 03/07/2017 5:40 AM FLOOR SANDING MACHINE OPERATOR Temperature 36.8 C (98.2 F) 03/08/2017 8:34 AM FLOOR SANDING MACHINE OPERATOR Respiratory Rate 16 03/08/2017 8:34 AM FLOOR SANDING MACHINE OPERATOR Oxygen Saturation 100% 03/08/2017 8:34 AM FLOOR SANDING MACHINE OPERATOR Inhaled Oxygen Concentration - - Weight 65.5 kg (144 lb 6.4 oz) 03/07/2017 5:40 A M FLOOR SANDING MACHINE OPERATOR Height 165.1 cm (5' 5) 03/07/2017 5:40 AM FLOOR SANDING MACHINE OPERATOR Body Mass Index 24.03 03/07/2017 5:40 AM FLOOR SANDING MACHINE OPERATOR Plan of Treatment Health Maintenance Due Date [...] this topic Medical Devices Implanted Type Area Gas Maker Device Identifier Shelf Expiration Date Model / Serial / Lot Barrier Seprafilm 5x6in 4301-02 - [id number] Implanted:Qt y: 1 on 01/20/2013 by Nunu Mckeon MD at [facility] [employer] Barrier Abdomen GENZYME- BIOSURG 08/03/2014 4301-02 / [id number] / [id number] Barrier Seprafilm 5x6in 430- - [id number] Implanted:Qt y: 1 on 09/24/2014 by Nunu Mckeon MD at [facility] Adhesion Barrier N/A: Uterus [employer] 08/29/2016 [id number] / / [id number] Mirena Iud Description:PLACED 12/[address] [place] [address] [facility] [employer] [place] [address] Advance Directives For more information, please contact: [phone] * Full Code (Latest Code Status on [...] 9:04 AM 01/20/2013 10:27 AM Care Teams Welt Butter Hand Relationship Specialty Start Date End Date Apolinar Holt MD [address] [facility] [address] [place] [address] PCP - General Family Practice 02/22/17
[2025-02-26 10:13] VITALS: BP 102/74; PULSE 82; RESP 18; TEMP 35.8; O2SAT 100; BMI 29.3
--- NOTE | 2025-02-26 10:24 | WPDANESEPPF ---
Anes - Initial Pre Proc Eval Procedure: Operation Date: 02/26/25 11:30 Proposed Procedures p Screening Colonoscopy - Louie Ch MD Date/Time: 02/26/25 10:24 Surgeon: Louie Ch MD Pre Op Diagnosis: Family history of malignant neoplasm of digestive Patient Data Age: 44 Gender: F Height: 1.65 m Weight: 80 kg Last Vital Signs Temp 96.4 F L 02/26/25 10:13 Pulse 82 02/26/25 10:13 Resp 18 02/26/25 10:13 BP 102/74 02/26/25 10:13 Pulse Ox 100 02/26/25 10:13 O2 Del Method Room Air 02/26/25 10:13 Allergies Allergy/AdvReac Type Severity Reaction Status Date / Time No Known Allergies Allergy Mild Verified 02/26/25 10:12 Home Medications ?Medication ?Instructions ?Recorded ?Confirmed ?Type gabapentin 300 mg capsule 300 mg PO BID PRN pain #60 caps 01/04/25 02/26/25 Rx Patient hx anesthesia problems: none Family hx anesthesia problems: none Results Review: All pre-operative results and documents have been reviewed as part of the pre-operative evaluation. [facility] Past Medical History Medical History LUPE (generalized anxiety disorder) Family history of colon cancer Surgical History Surgical History History of hysterectomy Family History Family History Mother Hypertension Carcinoma of colon Family history of coronary artery disease Social History Social History Social History: Smoking packs per day: 0.5 Smoking cigarettes per day: 10.0 Years smoked: 10 Smoking pack-years: 5.00 Smoking status: Former smoker Tobacco type: cigarettes Second hand tobacco smoke exposure: No Smoking end date: 05/02/02 Alcohol intake: current Substance use: never Substance use type: does not use Education: Don't Know Difficulty w/ Childcare or Family Care: No Living arrangements: with family Occupation/Education: other Additional occupation/education comments: Stay at home mom Gender identity (if verbalized by the patient): Female Sexual Orientation (if Verbalized by the Patient): Straight or Heterosexual Anes - Eval Final PreProcedure Day of Procedure 02/26/25 10:24 Patient weight: overweight Lungs: normal air movement Airway: Mallampati scale class II Neurological: alert and oriented Last oral intake: >/= 8 hours ASA classification: II Emergent: no Anesthetic plan: proceed Anesthesia type and monitoring: general GIVS and standard monitoring Results Review: All pre-operative results and documents have been reviewed as part of the pre-operative evaluation. Ex smoker, quit 2002, anxiety, active w housework, no cp or sob. Informed Consent: The patient's anesthetic plan and its attendant risks and benefits were discussed with the patient/family/POA. Questions were solicited and answers provided to the satisfaction of the patient/family/POA.
[2025-02-26] MEDS: LACTATED RINGERS 1,000 ML 150 ML IV CONT (10:25)
--- NOTE | 2025-02-26 11:18 | P.HP_ITS ---
History of Present Illness History of Present Illness Consent: Risks, benefits, and alternatives have been discussed and questions answered. Patient agrees to proceed with procedure. Chief complaint: Family history of malignant neoplasm of digestive Narrative: Natali Thurston is a 44 year old female with last colonoscopy 7 years ago, mother had colon cancer when 36yo Review of Systems Review of Systems: All systems reviewed & are unremarkable except as noted in HPI and below PMFSH Past Medical History Medical History LUPE (generalized anxiety disorder) Family history of colon cancer Surgical History Surgical History History of hysterectomy Family History Family History Mother Hypertension Carcinoma of colon Family history of coronary artery disease Social History Social History Social History: Smoking packs per day: 0.5 Smoking cigarettes per day: 10.0 Years smoked: 10 Smoking pack-years: 5.00 Smoking status: Former smoker Tobacco type: cigarettes Second hand tobacco smoke exposure: No Smoking end date: 05/02/02 Alcohol intake: current Substance use: never Substance use type: does not use Education: Don't Know Difficulty w/ Childcare or Family Care: No Living arrangements: with family Occupation/Education: other Additional occupation/education comments: Stay at home mom Gender identity (if verbalized by the patient): Female Sexual Orientation (if Verbalized by the Patient): Straight or Heterosexual Meds Home Medications and Allergies Home Medications ?Medication ?Instructions ?Recorded ?Confirmed ?Type gabapentin 300 mg capsule 300 mg PO BID PRN pain #60 c aps 01/04/25 02/26/25 Rx Allergies Allergy/AdvReac Type Severity Reaction Status Date / Time No Known Allergies Allergy Mild Verified 02/26/25 10:12 Vital Signs Vital Signs - 24 hr 02/26/25 10:13 Temperature 96.4 F L Pulse Rate 82 Respiratory Rate 18 Blood Pressure 102/74 Pulse Oximetry 100 Oxygen Delivery Room Air Exam Const: General: comfortable and no acute distress HENMT: Face/Nose/Sinus: Normal nares present Eyes: General: appearance normal, both eyes and all related structures Neck: Neck: no JVD Resp: Auscultation: clear to auscultation bilaterally Cardio: Rate: regular rate Rhythm: regular rhythm GI: Inspection: non-distended GI Palp: Yes Soft to palpation Skin: General skin exam: normal color Extrem: General: normal to inspection Psych: Mental Status: mental status grossly normal Assessment and Plan Assessment and plan (1) Family history of colon cancer: Code(s): Z80.0 - Family history of malignant neoplasm of digestive organs Status: Acute Assessment and Plan: colonoscopy
[2025-02-26 11:33] VITALS: BP 93/51; PULSE 71; RESP 21; O2SAT 100
[2025-02-26 11:43] VITALS: BP 98/58; PULSE 72; RESP 13; O2SAT 100
[2025-02-26 11:53] VITALS: BP 103/77; PULSE 63; RESP 15; O2SAT 100
== END 2025-02-26 11:55 | disposition home or self-care (01) ==
PROVIDERS: PCP Family Medicine; Visit Provider Internal Medicine Gastroenterology
PROC: 0DJD8ZZ Inspection of Lower Intestinal Tract, Via Natural or Artificial Opening Endoscopic (ICD-10-PCS; CPT 45378; principal; 2025-02-26 11:30)
DX: Z12.11 Encounter for screening for malignant neoplasm of colon (principal); K64.8 Other hemorrhoids; Z80.0 Family history of malignant neoplasm of digestive organs; Z87.891 Personal history of nicotine dependence
CPT/HCPCS: 45378; J2003; J2704; J7120